=== PATIENT | female | born 1935 | race Caucasian/White ===

== ENCOUNTER → 2018-01-24 | Outpatient (CLI) | payer MEDICARE, OTHER ==
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
--- NOTE | 2018-01-28 09:53 | MM ---
Reason for exam: screening (asymptomatic). Last mammogram was performed 8 years and 3 months ago. History: Patient is postmenopausal. Family history of breast cancer in mother. Benign left US cyst aspiration of the left breast, March 20, 2007. Excisional biopsy of the left breast. Took estrogen for 1 year beginning at age 46. Took progesterone for 1 year. Physical Findings: A clinical breast exam by your physician is recommended on an annual basis and results should be correlated with mammographic findings. MG Screening Mammo w CAD Bilateral CC and MLO view(s) were taken. Prior study comparison: January 10, 2011, mammogram, performed at [facility]. October 29, 2009, right breast mammogram dig work up. October 06, 2009, bilateral digital screening mammogram. The breast tissue is heterogeneously dense. This may lower the sensitivity of mammography. Stable benign calcifications. There is chronic nodularity bilaterally. There is no dominant lesion. No significant changes when compared with prior studies. ASSESSMENT: Benign, BI-RAD 2 RECOMMENDATION: Routine screening mammogram of both breasts in 1 year.
== END | disposition home or self-care (01) ==
LOC: RADMAMWWP 09:52
PROVIDERS: ATTEND Internal Medicine
DX: Z12.31 Encounter for screening mammogram for malignant neoplasm of breast (principal); M85.80 Other specified disorders of bone density and structure, unspecified site; Z78.0 Asymptomatic menopausal state
CPT/HCPCS: 77067; 77080

== ENCOUNTER 2021-10-04 18:10 | Emergency (ER) | payer OTHER, MEDICARE ==
[2021-10-04 18:27] VITALS: TEMP 98.3
--- NOTE | 2021-10-04 20:21 | XR ---
EXAMINATION TYPE: XR chest 2V DATE OF EXAM: 10/04/2021 7:44 PM COMPARISON: None TECHNIQUE: XR chest 2V Frontal and lateral views of the chest. CLINICAL INDICATION:Female, 86 years old with history of chest pain; FINDINGS: Lungs/Pleura: Streaky atelectasis within lung bases. There is flattening of the diaphragm with increa sed lucency of the lungs. No evidence of pneumothorax, pleural effusion or focal consolidation. Pulmonary vascularity: Unremarkable. Heart/mediastinum: Cardiomediastinal silhouette is unremarkable. Musculoskeletal: No acute osseous pathology. IMPRESSION: 1. No acute cardiopulmonary disease/process. 2. COPD changes
[2021-10-04] MEDS ORDERED: RX INFO: IV CONTRAST WAS GIVEN 1 EACH MISC MISCELLANE PRN (20:24)
[2021-10-04] MEDS ORDERED: MORPHINE SULFATE 2 MG/ML SYRINGE IVP STA (20:26)
[2021-10-04 20:46] LABS: Basophils # (A) 0.1 k/uL (0-0.2); Basophils % (A) 0 %; Eosinophils % (A) 0 %; HCT 42.4 % (34.0-46.0); HGB 13.3 gm/dL (11.4-16.0); Lymphocytes # (A) 1.3 k/uL (1.0-4.8); Lymphocytes % (A) 9 %; MCH 27.6 pg (25.0-35.0); MCHC 31.2 g/dL (31.0-37.0); MCV 88.4 fL (80.0-100.0); Mean Platelet Volume 7.6; Monocytes # (A) 0.7 k/uL (0-1.0); Monocytes % (A) 4 %; Neutrophils % (A) 86 %; Platelet Count 238 k/uL (150-450); RDW 13.1 % (11.5-15.5); WBC 15.1 k/uL (3.8-10.6)
[2021-10-04 20:55] LABS: Albumin 3.9 g/dL (3.5-5.0); Potassium 4.3 mmol/L (3.5-5.1); Total Protein 6.9 g/dL (6.3-8.2)
[2021-10-04 20:56] LABS: Calcium 9.6 mg/dL (8.4-10.2); Total Bilirubin 0.7 mg/dL (0.2-1.3)
[2021-10-04 21:01] LABS: INR 0.9 (<1.2); Partial Thromboplastin Time 22.5 sec (22.0-30.0); Prothrombin Time 9.9 sec (9.0-12.0)
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
[2021-10-04] MEDS ORDERED: LIDOCAINE 5% PATCH TOPICAL STA (22:36)
[2021-10-04] MEDS ORDERED: traMADol 50 MG STARTER PACK 3 TAB BTL PO STA (22:39)
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
[2021-10-04 23:01] VITALS: BP 168/82; PULSE 70; RESP 18
== END 2021-10-04 23:01 | disposition home or self-care (01) ==
LOC: EC 18:10
DX: S22.32XA Fracture of one rib, left side, initial encounter for closed fracture (principal); I10 Essential (primary) hypertension; R73.9 Hyperglycemia, unspecified; R91.1 Solitary pulmonary nodule; V89.2XXA Person injured in unspecified motor-vehicle accident, traffic, initial encounter
CPT/HCPCS: 36415; 93005; 80053; 84484; 85025; 85610; 85730; 71046; 71260; 99284; 96374; J2270; Q9967

== ENCOUNTER 2021-10-10 08:55 | Inpatient (IN) | payer OTHER, MEDICARE ==
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
[2021-10-10] MEDS ORDERED: PANTOPRAZOLE 40 MG/10 ML VIAL IVP STA (09:13)
[2021-10-10] MEDS ORDERED: MORPHINE SULFATE 2 MG/ML SYRINGE IVP STA (09:36)
[2021-10-10 09:55] LABS: Basophils % (A) 0 %; Eosinophils # (A) 0.1 k/uL (0-0.7); Eosinophils % (A) 0 %; HCT 38.4 % (34.0-46.0); HGB 12.8 gm/dL (11.4-16.0); Lymphocytes # (A) 1.3 k/uL (1.0-4.8); Lymphocytes % (A) 11 %; MCH 28.7 pg (25.0-35.0); MCHC 33.4 g/dL (31.0-37.0); MCV 85.9 fL (80.0-100.0); Mean Platelet Volume 7.7; Monocytes # (A) 0.5 k/uL (0-1.0); Monocytes % (A) 4 %; Neutrophils # (A) 9.6 k/uL (1.3-7.7); Neutrophils % (A) 82 %; Platelet Count 271 k/uL (150-450); RBC 4.47 m/uL (3.80-5.40); RDW 13.9 % (11.5-15.5); WBC 11.6 k/uL (3.8-10.6)
--- NOTE | 2021-10-10 10:18 | XR ---
EXAMINATION TYPE: XR chest 1V portable DATE OF EXAM: 10/10/2021 COMPARISON: 10/04/2021 HISTORY: Pain TECHNIQUE: Single frontal view of the chest is obtained. FINDINGS: Bilateral consolidation and pleural effusion. Diffuse osteopenia with arthropathy of the s houlders. IMPRESSION: Bilateral infiltrate and pleural effusion. Correlate for COPD.
[2021-10-10 10:23] LABS: INR 0.9 (<1.2); Partial Thromboplastin Time 22.6 sec (22.0-30.0); Prothrombin Time 10.1 sec (9.0-12.0)
[2021-10-10 10:37] LABS: Albumin 3.2 g/dL (3.5-5.0); Calcium 9.2 mg/dL (8.4-10.2); Potassium 3.9 mmol/L (3.5-5.1); Total Bilirubin 0.9 mg/dL (0.2-1.3); Total Protein 6.1 g/dL (6.3-8.2)
[2021-10-10 10:40] LABS: Appearance,Urine Clear (Clear); Bacteria,Urine Moderate /hpf; Bilirubin,Urine Negative (Negative); Blood,Urine Negative (Negative); Color,Urine Yellow; Glucose,Urine (UA) 4+ (Negative); Hyaline Casts,Urine 1 /lpf (0-2); Ketones,Urine 1+ (Negative); Leukocyte Esterase,Urine Negative (Negative); Mucus,Urine Rare /hpf; Nitrite,Urine Negative (Negative); PH, Urine 5.5 (5.0-8.0); Protein,Urine 1+ (Negative); RBC,Urine 1 /hpf (0-5); Specific Gravity,Urine 1.022 (1.001-1.035); WBC,Urine 1 /hpf (0-5)
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
[2021-10-10] MEDS ORDERED: NALOXONE 0.4 MG/ML 1 ML VIAL IV PRN (13:02)
[2021-10-10] MEDS ORDERED: ONDANSETRON 4 MG/2 ML VIAL IVP PRN (13:02)
[2021-10-10] MEDS ORDERED: ACETAMINOPHEN TAB 325 MG TAB PO PRN (13:02)
[2021-10-10] MEDS ORDERED: HYDROcodone/APAP 5-325MG 1 EACH TAB PO PRN (13:02)
[2021-10-10] MEDS ORDERED: SODIUM CHLORIDE 0.9% 1,000 ML IV STA (13:14)
[2021-10-10] MEDS: HYDROcodone/APAP 5-325MG 1 EACH TAB PO PRN (13:26)
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
[2021-10-10 17:10] LABS: Glucose,Whole Blood 282 mg/dL (75-99)
[2021-10-10] MEDS: LIDOCAINE 5% PATCH TOPICAL SCH (18:57)
[2021-10-10] MEDS: INSULIN ASPART (NovoLOG) 100 UNIT/ML VIAL SQ SCH ×2 (18:58→23:28)
[2021-10-10 20:16] LABS: Glucose,Whole Blood 435 mg/dL (75-99)
[2021-10-10] MEDS: INSULIN DETEMIR (LEVEMIR) 100 UNIT/ML SYR SQ SCH (23:25)
[2021-10-11 02:03] LABS: Glucose,Whole Blood 86 mg/dL (75-99)
[2021-10-11 04:23] LABS: Glucose,Whole Blood 61 mg/dL (75-99)
[2021-10-11 04:23] LABS: Glucose,Whole Blood 43 mg/dL (75-99)
[2021-10-11 04:42] LABS: Glucose,Whole Blood 97 mg/dL (75-99)
[2021-10-11 05:31] LABS: Glucose,Whole Blood 190 mg/dL (75-99)
[2021-10-11] MEDS: INSULIN DETEMIR (LEVEMIR) 100 UNIT/ML SYR SQ SCH (06:46)
[2021-10-11] MEDS: PANTOPRAZOLE 40 MG TABLET PO SCH (06:46)
[2021-10-11] MEDS: LIDOCAINE 5% PATCH TOPICAL SCH (07:09)
[2021-10-11 07:58] LABS: Basophils % (A) 0 %; Eosinophils % (A) 0 %; HCT 37.1 % (34.0-46.0); HGB 11.7 gm/dL (11.4-16.0); Lymphocytes # (A) 0.6 k/uL (1.0-4.8); Lymphocytes % (A) 6 %; MCH 27.5 pg (25.0-35.0); MCHC 31.5 g/dL (31.0-37.0); MCV 87.2 fL (80.0-100.0); Monocytes # (A) 0.5 k/uL (0-1.0); Monocytes % (A) 5 %; Neutrophils # (A) 7.7 k/uL (1.3-7.7); Neutrophils % (A) 87 %; Platelet Count 216 k/uL (150-450); RBC 4.25 m/uL (3.80-5.40); RDW 13.3 % (11.5-15.5); WBC 8.9 k/uL (3.8-10.6)
[2021-10-11 08:13] LABS: Albumin 2.8 g/dL (3.5-5.0); Calcium 8.9 mg/dL (8.4-10.2); Total Bilirubin 0.5 mg/dL (0.2-1.3); Total Protein 5.6 g/dL (6.3-8.2)
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
[2021-10-11 09:07] LABS: Glucose,Whole Blood 191 mg/dL (75-99)
[2021-10-11] MEDS: INSULIN ASPART (NovoLOG) 100 UNIT/ML VIAL SQ SCH ×3 (09:20→17:08)
[2021-10-11] MEDS: ENOXAPARIN 40 MG/0.4 ML SYRINGE SQ SCH (09:46)
[2021-10-11] MEDS: ATORVASTATIN 10 MG TAB PO SCH (09:47)
[2021-10-11] MEDS: amLODIPine 5 MG TAB PO SCH (09:47)
[2021-10-11] MEDS: ESCITALOPRAM 10 MG TAB PO SCH (09:47)
[2021-10-11] MEDS: HYDROcodone/APAP 5-325MG 1 EACH TAB PO PRN (09:47)
[2021-10-11] MEDS: DONEPEZIL 10 MG TAB PO SCH (09:47)
[2021-10-11] MEDS: buPROPion SR 100 MG TABLET.ER PO SCH (09:47)
[2021-10-11 11:44] LABS: Glucose,Whole Blood 75 mg/dL (75-99)
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
[2021-10-11] MEDS: DICLOFENAC SODIUM GEL 100 GM TUBE TOPICAL SCH ×3 (14:47→21:06)
[2021-10-11] MEDS: HYDROcodone/APAP 7.5-325MG 1 EACH TAB PO PRN (14:47)
[2021-10-11 16:22] LABS: Glucose,Whole Blood 90 mg/dL (75-99)
[2021-10-11 20:41] LABS: Glucose,Whole Blood 110 mg/dL (75-99)
[2021-10-12 02:06] LABS: Glucose,Whole Blood 123 mg/dL (75-99)
[2021-10-12 06:10] LABS: Glucose,Whole Blood 120 mg/dL (75-99)
[2021-10-12] MEDS: INSULIN ASPART (NovoLOG) 100 UNIT/ML VIAL SQ SCH ×3 (06:11→16:40)
[2021-10-12] MEDS: PANTOPRAZOLE 40 MG TABLET PO SCH (06:30)
[2021-10-12] MEDS: ENOXAPARIN 40 MG/0.4 ML SYRINGE SQ SCH (09:05)
[2021-10-12] MEDS: LIDOCAINE 5% PATCH TOPICAL SCH (09:05)
[2021-10-12] MEDS: DONEPEZIL 10 MG TAB PO SCH (09:05)
[2021-10-12] MEDS: HYDROcodone/APAP 7.5-325MG 1 EACH TAB PO PRN ×2 (09:05→15:08)
[2021-10-12] MEDS: ATORVASTATIN 10 MG TAB PO SCH (09:06)
[2021-10-12] MEDS: ESCITALOPRAM 10 MG TAB PO SCH (09:06)
[2021-10-12] MEDS: DICLOFENAC SODIUM GEL 100 GM TUBE TOPICAL SCH ×4 (09:06→20:41)
[2021-10-12] MEDS: amLODIPine 5 MG TAB PO SCH (09:06)
[2021-10-12] MEDS: buPROPion SR 100 MG TABLET.ER PO SCH (09:06)
[2021-10-12] MEDS ORDERED: amLODIPine 5 MG TAB PO STA (11:52)
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
[2021-10-12] MEDS: INSULIN DETEMIR (LEVEMIR) 100 UNIT/ML SYR SQ SCH (12:02)
[2021-10-12 12:17] LABS: Glucose,Whole Blood 193 mg/dL (75-99)
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
[2021-10-12 16:15] LABS: Glucose,Whole Blood 331 mg/dL (75-99)
[2021-10-12 20:15] LABS: Glucose,Whole Blood 389 mg/dL (75-99)
[2021-10-13 02:18] LABS: Glucose,Whole Blood 287 mg/dL (75-99)
[2021-10-13] MEDS: HYDROcodone/APAP 7.5-325MG 1 EACH TAB PO PRN (03:46)
[2021-10-13 06:18] LABS: Glucose,Whole Blood 133 mg/dL (75-99)
[2021-10-13] MEDS: INSULIN DETEMIR (LEVEMIR) 100 UNIT/ML SYR SQ SCH (06:44)
[2021-10-13] MEDS: INSULIN ASPART (NovoLOG) 100 UNIT/ML VIAL SQ SCH ×3 (06:44→17:20)
[2021-10-13] MEDS: PANTOPRAZOLE 40 MG TABLET PO SCH (06:45)
[2021-10-13] MEDS: ESCITALOPRAM 10 MG TAB PO SCH (08:48)
[2021-10-13] MEDS: ENOXAPARIN 40 MG/0.4 ML SYRINGE SQ SCH (08:48)
[2021-10-13] MEDS: buPROPion SR 100 MG TABLET.ER PO SCH (08:48)
[2021-10-13] MEDS: ATORVASTATIN 10 MG TAB PO SCH (08:48)
[2021-10-13] MEDS: DONEPEZIL 10 MG TAB PO SCH (08:48)
[2021-10-13] MEDS: LIDOCAINE 5% PATCH TOPICAL SCH (08:48)
[2021-10-13] MEDS: DICLOFENAC SODIUM GEL 100 GM TUBE TOPICAL SCH ×3 (08:50→17:22)
[2021-10-13 08:52] LABS: Calcium 9.2 mg/dL (8.4-10.2); Potassium 3.5 mmol/L (3.5-5.1)
[2021-10-13] MEDS ORDERED: amLODIPine 10 MG TAB PO SCH (09:00)
[2021-10-13 11:37] LABS: Glucose,Whole Blood 178 mg/dL (75-99)
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
[2021-10-13 13:10] VITALS: TEMP 98
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
[2021-10-13 16:02] VITALS: BP 139/75; PULSE 70; RESP 17
[2021-10-13 16:09] LABS: Glucose,Whole Blood 253 mg/dL (75-99)
== END 2021-10-13 17:22 | DRG 183 ==
LOC: EC 08:55 → 3SCARD 13:02
PROVIDERS: ADMIT Surgery; ATTEND Surgery
DX: S22.43XA Multiple fractures of ribs, bilateral, initial encounter for closed fracture (principal); J96.01 Acute respiratory failure with hypoxia; E87.1 Hypo-osmolality and hyponatremia; J90 Pleural effusion, not elsewhere classified; J98.11 Atelectasis; K92.1 Melena; S20.219A Contusion of unspecified front wall of thorax, initial encounter; V89.2XXA Person injured in unspecified motor-vehicle accident, traffic, initial encounter; Z20.822 Contact with and (suspected) exposure to COVID-19; F03.90 Unspecified dementia, unspecified severity, without behavioral disturbance, psychotic disturbance, mood disturbance, and anxiety; F32.A Depression, unspecified; H91.90 Unspecified hearing loss, unspecified ear; G89.29 Other chronic pain; I10 Essential (primary) hypertension; K58.0 Irritable bowel syndrome with diarrhea; R74.01 Elevation of levels of liver transaminase levels; M41.9 Scoliosis, unspecified; S30.1XXA Contusion of abdominal wall, initial encounter; E78.5 Hyperlipidemia, unspecified; D72.829 Elevated white blood cell count, unspecified; E11.65 Type 2 diabetes mellitus with hyperglycemia; Y92.410 Unspecified street and highway as the place of occurrence of the external cause; Z79.4 Long term (current) use of insulin; Z79.84 Long term (current) use of oral hypoglycemic drugs; Z79.899 Other long term (current) drug therapy; Z87.891 Personal history of nicotine dependence
CPT/HCPCS: 36415; 71045; 71046; 71260; 74177; 80048; 80053; 81001; 82272; 83605; 84484; 85025; 85610; 85730; 86850; 86900; 86901; 87324; 87635; 93005; 96361; 96374; 96375; 99285